=== PATIENT | female | born 1980 | race Two or more races ===

== ENCOUNTER 2019-04-16 10:53 | Outpatient (CLI) | payer OTHER | END 2019-04-16 11:42 | disposition home or self-care (01) | LOC: SONOGRAMA 10:53 | DX: E04.1 Nontoxic single thyroid nodule (principal) ==

== ENCOUNTER → 2022-10-18 | Outpatient (CLI) | payer OTHER | END | disposition home or self-care (01) | LOC: SONOGRAMA 09:06 | PROVIDERS: ATTEND Pathology Anatomic Pathology & Clinical Pathology | DX: D34 Benign neoplasm of thyroid gland (principal); E06.3 Autoimmune thyroiditis; E04.2 Nontoxic multinodular goiter ==